=== PATIENT | male | born 1950 | race Caucasian/White ===

== ENCOUNTER → 2023-06-25 12:29 | Outpatient (CLI) | payer MEDICARE, SELFPAY ==
--- NOTE | 2023-06-25 12:34 | DI.RAD.S_ITS ---
PROCEDURE: XR LUMBAR SPINE MIN 4V INDICATIONS: BACK PAIN TECHNIQUE: 5 views of the lumbar spine acquired, including flexion and extension views. COMPARISON: None. FINDINGS: Bones: Moderate fecal debris throughout the colon and rectum Disc space narrowing hypertrophic facet joints noted in the lower lumbar spine L1-2 and L2-3 grade 1 retrolisthesis associated with hypertrophic facet joints and disc space narrowing lower lumbar spine. Oblique images show no evidence of pars defect. 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 on 06/25/2023 at 13:03
== END ==
PROVIDERS: Referring Provider Physical Medicine & Rehabilitation; Visit Provider Physical Medicine & Rehabilitation
DX: C83.30 Diffuse large B-cell lymphoma, unspecified site (principal); M47.816 Spondylosis without myelopathy or radiculopathy, lumbar region; M51.36 Other intervertebral disc degeneration, lumbar region; M54.9 Dorsalgia, unspecified; E03.9 Hypothyroidism, unspecified
CPT/HCPCS: 72110; 99214